=== PATIENT | female | born 1960 | race Caucasian/White ===

== ENCOUNTER 2018-04-01 15:36 | Emergency (ER) | payer BC, OTHER ==
[2018-04-01 15:47] VITALS: BP 140/93; PULSE 105; RESP 20; TEMP 98.5; O2SAT 96
--- NOTE | 2018-04-01 17:00 | C.PDOC ---
History Of Present Illness 57 y/o female presents to ED for complaints of noticing little blood in bowel movement today. Patient reports constipation yesterday but denies constipation today. Denies abdominal pain or any other physical complaints. Time Seen by Provider: 04/01/18 16:01 Chief Complaint (Nursing): GI Problem History Per: Patient History/Exam Limitations: no limitations Onset/Duration Of Symptoms: Hrs Current Symptoms Are (Timing): Still Present Number Of Bleeding Episodes: One Quality Of Discomfort: Unable To Describe Associated Symptoms: Rectal Bleeding. denies: Nausea, Vomiting, Diarrhea Modifying Factors: None Recent travel outside of the [place]: No Past Medical History Reviewed: Historical Data, Nursing Documentation, Vital Signs Vital Signs: Last Vital Signs Temp 98.5 F 04/01/18 15:40 Pulse 105 H 04/01/18 15:40 Resp 20 04/01/18 15:40 BP 140/93 H 04/01/18 15:40 Pulse Ox 96 04/01/18 17:06 - Medical History PMH: Depression, HTN, Hypercholesterolemia Comment Only: Chronic Kidney Disease (kidney infection 2012, was hospitalized for) - [facility] Procedures EXCIS KNEE SEMILUN CARTL (02/12/14) KNEE SYNOVECTOMY (02/12/14) OTHER REPAIR OF KNEE (02/12/14) Family History: States: No Known Family Hx - Social History Hx Alcohol Use: No Hx Substance Use: No - Immunization History Hx Tetanus Toxoid Vaccination: No Hx Influenza Vaccination: No Hx Pneumococcal Vaccination: No Review Of Systems Constitutional: Negative for: Fever, Chills Gastrointestinal: Positive for: Other (Bloody bowel movment ). Negative for: Nausea, Vomiting, Abdominal Pain, Diarrhea, Constipation Neurological: Negative for: Weakness, Numbness Physical Exam - Physical Exam Appears: Well, Non-toxic, No Acute Distress Skin: Normal Color, Warm, Dry Head: Atraumatic, Normacephalic Eye(s): bilateral: Normal Inspection, PERRL, EOMI Oral Mucosa: Moist Neck: Supple Chest: Symmetrical, No Tenderness Cardiovascular: Rhythm Regular Respiratory: Normal Breath Sounds, No Decreased Breath Sounds, No Rales, No Rhonchi, No Wheezing Gastrointestinal/Abdominal: Normal Exam, Soft, No Tenderness Rectal: Heme Negative, No Blood Streaked Stool, Hemorrhoids (2 small non- thrombosed hemorrhoids at 12PM and 6PM), Other (Light brown stool;no blood in stool ) Extremity: Normal ROM, No Deformity Extremity: Bilateral: Atraumatic, Normal Color And Temperature, Normal ROM Neurological/Psych: Oriented x3, Normal Speech Gait: Steady ED Course And Treatment O2 Sat by Pulse Oximetry: 96 (RA) Pulse Ox Interpretation: Normal Medical Decision Making Medical Decision Making: Patient seen and examined. Rectal exam done. Light brown stool, hemoccult negative. Hemorrhoids noted. No active rectal bleeding. Patient is medically stable and ready for discharge. Counseling has been provided and patient is in agreement. Return if symptoms persist or acutely worsen. Disposition - Disposition Disposition: HOME/ ROUTINE Disposition Time: 17:14 Condition: GOOD Additional Instructions: FEROZ FLETCHER, thank you for letting us take care of you today. Your provider was Gisele Kessler MD and you were treated for VAGINAL BLEEDING. The emergency medical care you received today was directed at your acute symptoms. If you were prescribed any medication, please fill it and take as directed. It may take several days for your symptoms to resolve. Return to the Emergency Department if your symptoms worsen, do not improve, or if you have any other problems. Please contact your doctor or call one of the physicians/clinics you have been referred to that are listed on the Patient Visit Information form that is included in your discharge packet. Bring any paperwork you were given at discharge with you along with any medications you are taking to your follow up visit. Our treatment cannot replace ongoing medical care by a primary care provider outside of the emergency department. Thank you for allowing the [facility] team to be part of your care today. If you had an X-Ray or CT scan: A Radiologist will review the ED reading if any change in treatment is needed we will contact you. If you had a blood, urine, or wound culture: It will take several days for the results, if any change in treatment is needed we will contact you. If you had an STI test: It will take 48 hours for the results. Please call after 1 week if you have not heard back. Instructions: Hemorrhoids (DC) Forms: [employer] (Slovenian) - Clinical Impression Clinical Impression: Hemorrhoids - Scribe Statement The provider has reviewed the documentation as recorded by the Abneribbalbir Restrepo All medical record entries made by the Scribe were at my direction and personally dictated by me. I have reviewed the chart and agree that the record accurately reflects my personal performance of the history, physical exam, medical decision making, and the department course for this patient. I have also personally directed, reviewed, and agree with the discharge instructions and disposition.
== END 2018-04-01 17:14 | disposition home or self-care (01) ==
LOC: C.ER 15:36
DX: K64.9 Unspecified hemorrhoids (principal)
CPT/HCPCS: 99284; G0328